=== PATIENT | male | born 1995 | race African-American/Black ===

== ENCOUNTER 2019-11-29 03:02 | Emergency (ER) | payer SELFPAY ==
[~2019-11-29] VITALS: Ht 188 cm; Wt 77.0 kg
[2019-11-29 03:04] VITALS: BP 151/81
== END 2019-11-29 05:31 | disposition left against medical advice (07) ==
LOC: ER 03:02
DX: F12.980 Cannabis use, unspecified with anxiety disorder (principal)
CPT/HCPCS: 99281